=== PATIENT | male | born 2000 | race Caucasian/White ===

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

== ENCOUNTER 2023-04-01 08:28 | Emergency (ER) | payer OTHER ==
[~2023-04-01] VITALS: Ht 182.9 cm; Wt 72.6 kg
[~2023-04-01 08:28] MED LIST changes: +ONDA4ODT MM
[2023-04-01 09:02] VITALS: BP 123/83
== END 2023-04-01 09:03 | disposition home or self-care (01) ==
LOC: ER 08:28
DX: S00.01XA Abrasion of scalp, initial encounter (principal); V43.52XA Car driver injured in collision with other type car in traffic accident, initial encounter; Y92.410 Unspecified street and highway as the place of occurrence of the external cause
CPT/HCPCS: 99284